=== PATIENT | male | born 1945 | race Caucasian/White ===

== ENCOUNTER 2018-09-13 17:26 | Inpatient (IN) | payer MEDICAID ==
[2018-09-13 17:52] LABS: ADD MAN DIFF? NO
[2018-09-13 17:55] LABS: BASOPHILS % 0.2 % (0.0-2.0); EOSINOPHILS # 0.1 10^3/ul (0.0-0.5); EOSINOPHILS % 0.6 % (0.0-7.0); HEMATOCRIT 45.6 % (42.0-52.0); HEMOGLOBIN 15.3 g/dl (14.0-18.0); LYMPHOCYTES # 1.2 10^3/ul (0.8-2.9); LYMPHOCYTES % 13.3 % (15.0-51.0); MEAN CORPUSCULAR HEMOGLOBIN 30.1 pg (29.0-33.0); MEAN CORPUSCULAR HGB CONC 33.6 g/dl (32.0-37.0); MEAN CORPUSCULAR VOLUME 89.6 fl (82.0-101.0); MEAN PLATELET VOLUME 9.3 fl (7.4-10.4); MONOCYTE # 0.5 10^3/ul (0.3-0.9); MONOCYTES % 5.8 % (0.0-11.0); NEUTROPHIL # 7.1 10^3/ul (1.6-7.5); NEUTROPHILS % 79.5 % (39.0-77.0); PLATELET COUNT 263 10^3/UL (140-415); RED BLOOD COUNT 5.09 10^6/ul (4.70-6.10); RED CELL DISTRIBUTION WIDTH 11.9 % (11.5-14.5)
[2018-09-13 18:14] LABS: ANION GAP 11 (5-13); BLOOD UREA NITROGEN 27 mg/dl (7-20); CALCIUM 9.5 mg/dl (8.4-10.2); CARBON DIOXIDE 26 mmol/L (21-31); CHLORIDE 98 mmol/L (97-110); CREATININE 1.44 mg/dl (0.61-1.24); GLUCOSE 149 mg/dl (70-220); POTASSIUM 4.2 mmol/L (3.5-5.1); SODIUM 135 mmol/L (135-144); URIC ACID 8.9 mg/dl (3.1-7.9)
[2018-09-13] MEDS: HYDROmorphONE 0.5 MG/0.5 ML SYG IV (18:38)
[2018-09-13 19:07] LABS: ERYTHROCYTE SEDIMENTATION RATE 36 mm/Hr (0-20)
[2018-09-13] MEDS ORDERED: DOCUSATE SODIUM 100 MG CAP PO (21:00)
[2018-09-13] MEDS ORDERED: ONDANSETRON 4 MG INJ IV (21:00)
[2018-09-13] MEDS ORDERED: NACL 0.9% 3 ML SYG IV (21:00)
[2018-09-13] MEDS ORDERED: ACETAMINOPHEN 325 MG TAB PO (21:00)
[2018-09-13] MEDS ORDERED: BISACODYL (EC) 5 MG TAB PO (21:00)
[2018-09-13] MEDS: predniSONE 20 MG TAB PO (21:05)
[2018-09-13] MEDS ORDERED: METOPROLOL (XL) 25 MG TAB PO (23:00)
[2018-09-14] MEDS: ATORVASTATIN 80 MG TAB PO ×2 (00:26→21:20)
[2018-09-14 05:30] LABS: ADD MAN DIFF? NO
[2018-09-14 05:50] LABS: WHITE BLOOD COUNT 7.9 10^3/ul (4.8-10.8)
[2018-09-14 05:50] LABS: ABNORMAL IP MESSAGE 1; HEMATOCRIT 44.3 % (42.0-52.0); HEMOGLOBIN 14.8 g/dl (14.0-18.0); LYMPHOCYTES # 0.5 10^3/ul (0.8-2.9); LYMPHOCYTES % 6.3 % (15.0-51.0); MEAN CORPUSCULAR HEMOGLOBIN 30.3 pg (29.0-33.0); MEAN CORPUSCULAR HGB CONC 33.4 g/dl (32.0-37.0); MEAN CORPUSCULAR VOLUME 90.8 fl (82.0-101.0); MEAN PLATELET VOLUME 9.3 fl (7.4-10.4); MONOCYTE # 0.2 10^3/ul (0.3-0.9); NEUTROPHIL # 7.2 10^3/ul (1.6-7.5); NEUTROPHILS % 91.2 % (39.0-77.0); PLATELET COUNT 242 10^3/UL (140-415); POSITIVE DIFF @See below; RED BLOOD COUNT 4.88 10^6/ul (4.70-6.10); RED CELL DISTRIBUTION WIDTH 12.1 % (11.5-14.5)
[2018-09-14] MEDS: PANTOPRAZOLE (EC) 40 MG TAB PO (06:00)
[2018-09-14 06:18] LABS: ALANINE AMINOTRANSFERASE 15 IU/L (13-69); ALBUMIN 3.6 g/dl (3.3-4.9); ALBUMIN/GLOBULIN RATIO 1.33; ALKALINE PHOSPHATASE 78 IU/L (42-121); ANION GAP 10 (5-13); ASPARTATE AMINO TRANSFERASE 21 IU/L (15-46); BILIRUBIN,INDIRECT 1.4 mg/dl (0-1.1); BILIRUBIN,TOTAL 1.4 mg/dl (0.2-1.3); BLOOD UREA NITROGEN 30 mg/dl (7-20); CALCIUM 9.1 mg/dl (8.4-10.2); CARBON DIOXIDE 23 mmol/L (21-31); CHLORIDE 102 mmol/L (97-110); CHOL/HDL RATIO 3.8 RATIO; CHOLESTEROL 124 mg/dl (100-200); CREATININE 1.24 mg/dl (0.61-1.24); GLUCOSE 203 mg/dl (70-220); HDL CHOLESTEROL 32 mg/dl (31-75); LDL CHOLESTEROL,CALCULATED 75 mg/dl; MAGNESIUM 2.1 mg/dl (1.7-2.5); POTASSIUM 4.1 mmol/L (3.5-5.1); SODIUM 135 mmol/L (135-144); TOTAL PROTEIN 6.3 g/dl (6.1-8.1); TRIGLYCERIDES 87 mg/dl (0-149)
[2018-09-14 07:07] LABS: HEMOGLOBIN A1C 5.7 % (0-5.9)
[2018-09-14 08:17] LABS: THYROID STIMULATING HORMONE 0.792 MIU/L (0.465-4.680)
[2018-09-14 08:47] LABS: INR 1.38; PARTIAL THROMBOPLASTIN TIME 36.9 Sec (23.0-35.0); PROTIME 17.1 Sec (11.9-14.9); PT RATIO 1.3
[2018-09-14] MEDS: predniSONE 20 MG TAB PO (09:10)
[2018-09-14] MEDS: ISOSORBIDE DINITRATE 10 MG TAB PO ×3 (09:12→21:21)
[2018-09-14] MEDS ORDERED: PE/SHARK OIL/MO/PETROL 30 GM OINT PR (17:00)
[2018-09-14] MEDS: BUPIVACAINE 0.5%/EPI (SDV) 30 ML INJ INJ (21:19)
[2018-09-14] MEDS: BETAMET NA PHOS/AC(6 MG/ML) 5ML INJ INJ (21:20)
[2018-09-15 05:24] LABS: ADD MAN DIFF? NO
[2018-09-15 05:32] LABS: BASOPHILS % 0.1 % (0.0-2.0); HEMATOCRIT 40.8 % (42.0-52.0); HEMOGLOBIN 13.8 g/dl (14.0-18.0); LYMPHOCYTES # 0.6 10^3/ul (0.8-2.9); LYMPHOCYTES % 5.1 % (15.0-51.0); MEAN CORPUSCULAR HEMOGLOBIN 30.4 pg (29.0-33.0); MEAN CORPUSCULAR HGB CONC 33.8 g/dl (32.0-37.0); MEAN CORPUSCULAR VOLUME 89.9 fl (82.0-101.0); MEAN PLATELET VOLUME 9.3 fl (7.4-10.4); MONOCYTE # 0.4 10^3/ul (0.3-0.9); MONOCYTES % 3.5 % (0.0-11.0); NEUTROPHIL # 10.7 10^3/ul (1.6-7.5); NEUTROPHILS % 90.7 % (39.0-77.0); PLATELET COUNT 262 10^3/UL (140-415); RED BLOOD COUNT 4.54 10^6/ul (4.70-6.10); RED CELL DISTRIBUTION WIDTH 11.9 % (11.5-14.5)
[2018-09-15 05:32] LABS: WHITE BLOOD COUNT 11.8 10^3/ul (4.8-10.8)
[2018-09-15 05:56] LABS: ANION GAP 8 (5-13); BLOOD UREA NITROGEN 37 mg/dl (7-20); CALCIUM 9.4 mg/dl (8.4-10.2); CARBON DIOXIDE 28 mmol/L (21-31); CHLORIDE 101 mmol/L (97-110); CREATININE 1.19 mg/dl (0.61-1.24); GLUCOSE 168 mg/dl (70-220); POTASSIUM 4.1 mmol/L (3.5-5.1); SODIUM 137 mmol/L (135-144)
[2018-09-15] MEDS: PANTOPRAZOLE (EC) 40 MG TAB PO (06:51)
[2018-09-15] MEDS: HYDROmorphONE 0.5 MG/0.5 ML SYG IV ×2 (06:57→20:40)
[2018-09-15 07:35] LABS: ERYTHROCYTE SEDIMENTATION RATE 44 mm/Hr (0-20)
[2018-09-15] MEDS: ISOSORBIDE DINITRATE 10 MG TAB PO ×3 (09:02→21:51)
[2018-09-15] MEDS: predniSONE 20 MG TAB PO (09:03)
[2018-09-15] MEDS: ATORVASTATIN 80 MG TAB PO (21:53)
[2018-09-15] MEDS: CARBOXYMETHYLCELLULOSE 0.5% 0.4 ML OPH BOTH EYES (23:11)
[2018-09-16] MEDS: PANTOPRAZOLE (EC) 40 MG TAB PO (06:43)
[2018-09-16] MEDS: predniSONE 20 MG TAB PO (08:49)
[2018-09-16] MEDS: CLOPIDOGREL 75 MG TAB GTB (08:49)
[2018-09-16] MEDS: ISOSORBIDE DINITRATE 10 MG TAB PO ×2 (08:50→12:56)
[2018-09-16] MEDS ORDERED: predniSONE 20 MG TAB PO (09:00)
[2018-09-16] MEDS: CARBOXYMETHYLCELLULOSE 0.5% 0.4 ML OPH BOTH EYES (12:22)
[2018-09-16] MEDS ORDERED: RIVAROXABAN 15 MG TABLET PO (17:55)
== END 2018-09-16 16:50 | disposition home health service (06) | DRG 554 ==
LOC: E/R 17:26 → MS1 20:07
PROVIDERS: Family Medicine
DX: M13.862 Other specified arthritis, left knee (principal); I13.0 Hypertensive heart and chronic kidney disease with heart failure and stage 1 through stage 4 chronic kidney disease, or unspecified chronic kidney disease; N17.9 Acute kidney failure, unspecified; I48.91 Unspecified atrial fibrillation; E78.5 Hyperlipidemia, unspecified; I10 Essential (primary) hypertension; I25.10 Atherosclerotic heart disease of native coronary artery without angina pectoris; M10.9 Gout, unspecified; I50.9 Heart failure, unspecified; N18.9 Chronic kidney disease, unspecified; Z79.01 Long term (current) use of anticoagulants
CPT/HCPCS: 36415; 73562; 73630; 73630-LT; 80048; 80053; 80061; 82962; 83036; 83605; 83735; 84443; 84560; 85025; 85610; 85651; 85730; 93005; 96374; 97116; 97162; 97530; 99285-25

== ENCOUNTER 2018-10-01 17:34 | Inpatient (IN) | payer OTHER, MEDICAID ==
[2018-10-01] MEDS: HYDROmorphONE 1 MG/ML SYG IV (18:24)
[2018-10-01] MEDS: ONDANSETRON 4 MG INJ IV (18:24)
[2018-10-01] MEDS: SOD CHLORIDE 0.9% 1,000 ML IV ×2 (18:24→22:45)
[2018-10-01 18:29] LABS: ADD MAN DIFF? NO
[2018-10-01 18:30] LABS: BASOPHILS % 0.1 % (0.0-2.0); EOSINOPHILS % 0.1 % (0.0-7.0); HEMATOCRIT 42.6 % (42.0-52.0); HEMOGLOBIN 14.1 g/dl (14.0-18.0); LYMPHOCYTES # 1.1 10^3/ul (0.8-2.9); LYMPHOCYTES % 11.4 % (15.0-51.0); MEAN CORPUSCULAR HEMOGLOBIN 30.4 pg (29.0-33.0); MEAN CORPUSCULAR HGB CONC 33.1 g/dl (32.0-37.0); MEAN CORPUSCULAR VOLUME 91.8 fl (82.0-101.0); MONOCYTE # 0.5 10^3/ul (0.3-0.9); MONOCYTES % 5.3 % (0.0-11.0); NEUTROPHIL # 8.1 10^3/ul (1.6-7.5); NEUTROPHILS % 82.1 % (39.0-77.0); PLATELET COUNT 179 10^3/UL (140-415); RED BLOOD COUNT 4.64 10^6/ul (4.70-6.10); RED CELL DISTRIBUTION WIDTH 12.6 % (11.5-14.5)
[2018-10-01 18:30] LABS: WHITE BLOOD COUNT 9.9 10^3/ul (4.8-10.8)
[2018-10-01 18:48] LABS: ALANINE AMINOTRANSFERASE 27 IU/L (13-69); ALBUMIN 3.7 g/dl (3.3-4.9); ALBUMIN/GLOBULIN RATIO 1.32; ALKALINE PHOSPHATASE 66 IU/L (42-121); ANION GAP 9 (5-13); ASPARTATE AMINO TRANSFERASE 24 IU/L (15-46); BILIRUBIN,INDIRECT 0.9 mg/dl (0-1.1); BILIRUBIN,TOTAL 0.9 mg/dl (0.2-1.3); BLOOD UREA NITROGEN 32 mg/dl (7-20); CALCIUM 9.3 mg/dl (8.4-10.2); CARBON DIOXIDE 26 mmol/L (21-31); CHLORIDE 102 mmol/L (97-110); GLUCOSE 126 mg/dl (70-220); LIPASE 95 U/L (23-300); POTASSIUM 4.2 mmol/L (3.5-5.1); SODIUM 137 mmol/L (135-144); TOTAL PROTEIN 6.5 g/dl (6.1-8.1)
[2018-10-01 18:51] LABS: INR 1.39; PARTIAL THROMBOPLASTIN TIME 26.1 Sec (23.0-35.0); PROTIME 17.2 Sec (11.9-14.9); PT RATIO 1.3
[2018-10-01 18:58] LABS: TROPONIN-I 0.021 ng/ml (0.000-0.120)
[2018-10-01] MEDS: IODIXANOL LOCM 100 ML BTL (19:38)
[2018-10-01] MEDS: SOD CHLORIDE 0.9% 100 ML (19:38)
[2018-10-01] MEDS ORDERED: ACETAMINOPHEN 325 MG TAB PO (20:00)
[2018-10-01] MEDS ORDERED: NACL 0.9% 3 ML SYG IV (20:00)
[2018-10-01] MEDS ORDERED: ONDANSETRON 4 MG INJ IV (20:00)
[2018-10-01 20:10] LABS: ADD UMIC YES; UR ASCORBIC ACID NEGATIVE (NEGATIVE); UR BILIRUBIN (Dip) NEGATIVE (NEGATIVE); UR BLOOD (Dip) 2+ mg/dL (NEGATIVE); UR CLARITY CLEAR (CLEAR); UR COLOR STRAW (YELLOW); UR GLUCOSE (Dip) NEGATIVE (NEGATIVE); UR KETONES (Dip) NEGATIVE (NEGATIVE); UR LEUKOCYTE ESTERASE (Dip) NEGATIVE Leu/ul (NEGATIVE); UR NITRITE (Dip) NEGATIVE (NEGATIVE); UR RBC 92 /HPF (0-5); UR SPECIFIC GRAVITY (Dip) 1.011 (1.003-1.030); UR TOTAL PROTEIN (Dip) NEGATIVE (NEGATIVE); UR UROBILINOGEN (Dip) NEGATIVE (NEGATIVE); UR WBC 2 /HPF (0-5)
[2018-10-02] MEDS: HYDROmorphONE 0.5 MG/0.5 ML SYG IV ×2 (00:58→17:26)
[2018-10-02] MEDS: PIPER-TAZO 3.375 GM IV (PMX) 100 ML IVPB ×3 (06:16→17:05)
[2018-10-02] MEDS: PANTOPRAZOLE 40 MG INJ IV (06:58)
[2018-10-02 07:10] LABS: ADD MAN DIFF? NO
[2018-10-02 07:21] LABS: WHITE BLOOD COUNT 9.7 10^3/ul (4.8-10.8)
[2018-10-02 07:21] LABS: BASOPHILS % 0.2 % (0.0-2.0); EOSINOPHILS % 0.3 % (0.0-7.0); HEMOGLOBIN 13.8 g/dl (14.0-18.0); LYMPHOCYTES # 0.9 10^3/ul (0.8-2.9); LYMPHOCYTES % 9.3 % (15.0-51.0); MEAN CORPUSCULAR HEMOGLOBIN 30.7 pg (29.0-33.0); MEAN CORPUSCULAR HGB CONC 32.9 g/dl (32.0-37.0); MEAN CORPUSCULAR VOLUME 93.5 fl (82.0-101.0); MEAN PLATELET VOLUME 9.1 fl (7.4-10.4); MONOCYTE # 0.5 10^3/ul (0.3-0.9); MONOCYTES % 4.8 % (0.0-11.0); NEUTROPHIL # 8.2 10^3/ul (1.6-7.5); NEUTROPHILS % 84.7 % (39.0-77.0); PLATELET COUNT 160 10^3/UL (140-415); RED BLOOD COUNT 4.49 10^6/ul (4.70-6.10); RED CELL DISTRIBUTION WIDTH 12.9 % (11.5-14.5)
[2018-10-02 07:51] LABS: ANION GAP 3 (5-13); BLOOD UREA NITROGEN 28 mg/dl (7-20); CALCIUM 8.6 mg/dl (8.4-10.2); CARBON DIOXIDE 30 mmol/L (21-31); CHLORIDE 104 mmol/L (97-110); CREATININE 1.06 mg/dl (0.61-1.24); GLUCOSE 123 mg/dl (70-220); MAGNESIUM 2.1 mg/dl (1.7-2.5); POTASSIUM 3.9 mmol/L (3.5-5.1); SODIUM 137 mmol/L (135-144)
[2018-10-02] MEDS: SOD CHLORIDE 0.9% 1,000 ML IV ×2 (10:06→16:48)
[2018-10-02] MEDS ORDERED: ETOMIDATE 20 MG INJ (12:56)
[2018-10-02] MEDS ORDERED: FENTAnyl 50 MCG/ML VIAL ×2 (12:56→14:09)
[2018-10-02 13:08] LABS: IMMEDIATE SPIN CROSSMATCH 1 2
[2018-10-02] MEDS ORDERED: SUCCINYLCHOLINE CHLORIDE 100 MG/5 ML SYG IV (13:30)
[2018-10-02] MEDS ORDERED: ROCURONIUM 50 MG INJ (13:30)
[2018-10-02] MEDS ORDERED: SUGAMMADEX SODIUM 200 MG/2 ML VIAL IV (13:30)
[2018-10-02] MEDS ORDERED: PROPOFOL 20 ML (13:30)
[2018-10-02] MEDS ORDERED: LIDOCAINE 100 MG SYRINGE (13:30)
[2018-10-02] MEDS ORDERED: HYDROmorphONE 1 MG/5 ML IV SYRINGE IV ×2 (14:28→15:00)
[2018-10-02] MEDS ORDERED: FENTAnyl 50 MCG/ML VIAL IV ×2 (15:00)
[2018-10-02] MEDS: ONDANSETRON 4 MG INJ IV (15:24)
[2018-10-02] MEDS: HYDROmorphONE 1 MG/5 ML IV SYRINGE IV ×2 (15:25→15:55)
[2018-10-02] MEDS: FENTAnyl 50 MCG/ML VIAL IV (16:01)
[2018-10-02] MEDS: CLOPIDOGREL 75 MG TAB PO (17:05)
[2018-10-02 20:02] LABS: ADD UMIC YES; UR ASCORBIC ACID NEGATIVE (NEGATIVE); UR BILIRUBIN (Dip) NEGATIVE (NEGATIVE); UR BLOOD (Dip) 3+ mg/dL (NEGATIVE); UR CLARITY CLOUDY (CLEAR); UR COLOR AMBER (YELLOW); UR GLUCOSE (Dip) NEGATIVE (NEGATIVE); UR KETONES (Dip) NEGATIVE (NEGATIVE); UR LEUKOCYTE ESTERASE (Dip) NEGATIVE Leu/ul (NEGATIVE); UR NITRITE (Dip) NEGATIVE (NEGATIVE); UR RBC > 182 /HPF (0-5); UR SPECIFIC GRAVITY (Dip) 1.026 (1.003-1.030); UR TOTAL PROTEIN (Dip) 2+ mg/dl (NEGATIVE); UR UROBILINOGEN (Dip) NEGATIVE (NEGATIVE); UR WBC > 182 /HPF (0-5)
[2018-10-03] MEDS: PIPER-TAZO 3.375 GM IV (PMX) 100 ML IVPB ×4 (05:41→18:58)
[2018-10-03] MEDS: PANTOPRAZOLE 40 MG INJ IV (05:42)
[2018-10-03] MEDS: CLOPIDOGREL 75 MG TAB PO (08:03)
[2018-10-03] MEDS: HYDROmorphONE 0.5 MG/0.5 ML SYG IV (08:08)
[2018-10-03] MEDS: SOD CHLORIDE 0.9% 1,000 ML IV (10:57)
[2018-10-03 12:20] LABS: ADD MAN DIFF? NO
[2018-10-03 12:23] LABS: BASOPHILS % 0.4 % (0.0-2.0); EOSINOPHILS # 0.1 10^3/ul (0.0-0.5); HEMATOCRIT 31.5 % (42.0-52.0); HEMOGLOBIN 10.2 g/dl (14.0-18.0); LYMPHOCYTES # 0.7 10^3/ul (0.8-2.9); LYMPHOCYTES % 8.7 % (15.0-51.0); MEAN CORPUSCULAR HEMOGLOBIN 31.2 pg (29.0-33.0); MEAN CORPUSCULAR HGB CONC 32.4 g/dl (32.0-37.0); MEAN CORPUSCULAR VOLUME 96.3 fl (82.0-101.0); MEAN PLATELET VOLUME 9.3 fl (7.4-10.4); MONOCYTE # 0.4 10^3/ul (0.3-0.9); MONOCYTES % 4.5 % (0.0-11.0); NEUTROPHIL # 6.8 10^3/ul (1.6-7.5); NEUTROPHILS % 84.9 % (39.0-77.0); PLATELET COUNT 144 10^3/UL (140-415); RED BLOOD COUNT 3.27 10^6/ul (4.70-6.10); RED CELL DISTRIBUTION WIDTH 12.9 % (11.5-14.5)
[2018-10-03 12:42] LABS: ANION GAP 2 (5-13); BLOOD UREA NITROGEN 32 mg/dl (7-20); CALCIUM 7.9 mg/dl (8.4-10.2); CARBON DIOXIDE 28 mmol/L (21-31); CHLORIDE 106 mmol/L (97-110); CREATININE 1.57 mg/dl (0.61-1.24); GLUCOSE 139 mg/dl (70-220); MAGNESIUM 1.8 mg/dl (1.7-2.5); PHOSPHORUS 5.2 mg/dl (2.5-4.9); POTASSIUM 3.9 mmol/L (3.5-5.1); SODIUM 136 mmol/L (135-144)
[2018-10-04] MEDS: PIPER-TAZO 3.375 GM IV (PMX) 100 ML IVPB ×5 (00:11→23:50)
[2018-10-04] MEDS: HYDROmorphONE 0.5 MG/0.5 ML SYG IV ×3 (00:13→23:50)
[2018-10-04] MEDS: PANTOPRAZOLE 40 MG INJ IV (05:15)
[2018-10-04] MEDS: SOD CHLORIDE 0.9% 1,000 ML IV ×2 (05:15→17:47)
[2018-10-04 06:43] LABS: ADD MAN DIFF? NO
[2018-10-04 06:46] LABS: ABNORMAL IP MESSAGE 1; EOSINOPHILS % 0.7 % (0.0-7.0); HEMATOCRIT 27.5 % (42.0-52.0); LYMPHOCYTES # 0.4 10^3/ul (0.8-2.9); LYMPHOCYTES % 7.1 % (15.0-51.0); MEAN CORPUSCULAR HGB CONC 32.7 g/dl (32.0-37.0); MEAN CORPUSCULAR VOLUME 94.8 fl (82.0-101.0); MEAN PLATELET VOLUME 9.2 fl (7.4-10.4); MONOCYTE # 0.3 10^3/ul (0.3-0.9); MONOCYTES % 4.4 % (0.0-11.0); NEUTROPHIL # 5.1 10^3/ul (1.6-7.5); PLATELET COUNT 113 10^3/UL (140-415); POSITIVE DIFF @See below
[2018-10-04 06:46] LABS: WHITE BLOOD COUNT 5.9 10^3/ul (4.8-10.8)
[2018-10-04 07:14] LABS: ANION GAP 0 (5-13); BLOOD UREA NITROGEN 27 mg/dl (7-20); CALCIUM 8.2 mg/dl (8.4-10.2); CARBON DIOXIDE 29 mmol/L (21-31); CHLORIDE 106 mmol/L (97-110); CREATININE 1.41 mg/dl (0.61-1.24); GLUCOSE 135 mg/dl (70-220); POTASSIUM 3.7 mmol/L (3.5-5.1); SODIUM 135 mmol/L (135-144)
[2018-10-04 07:18] LABS: PHOSPHORUS 3.2 mg/dl (2.5-4.9)
[2018-10-04] MEDS: CLOPIDOGREL 75 MG TAB PO (08:47)
[2018-10-04] MEDS: ONDANSETRON 4 MG INJ IV (21:04)
[2018-10-05] MEDS: ONDANSETRON 4 MG INJ IV (03:16)
[2018-10-05] MEDS: PANTOPRAZOLE (EC) 40 MG TAB PO (06:36)
[2018-10-05] MEDS: PIPER-TAZO 3.375 GM IV (PMX) 100 ML IVPB ×3 (06:36→17:57)
[2018-10-05] MEDS: CLOPIDOGREL 75 MG TAB PO (08:55)
[2018-10-05] MEDS ORDERED: BISACODYL (EC) 5 MG TAB PO (10:00)
[2018-10-05 10:32] LABS: ADD MAN DIFF? NO
[2018-10-05 10:34] LABS: ABNORMAL IP MESSAGE 1; BASOPHILS % 0.1 % (0.0-2.0); EOSINOPHILS % 0.4 % (0.0-7.0); HEMATOCRIT 28.3 % (42.0-52.0); HEMOGLOBIN 9.1 g/dl (14.0-18.0); LYMPHOCYTES # 0.4 10^3/ul (0.8-2.9); LYMPHOCYTES % 5.8 % (15.0-51.0); MEAN CORPUSCULAR HEMOGLOBIN 30.8 pg (29.0-33.0); MEAN CORPUSCULAR HGB CONC 32.2 g/dl (32.0-37.0); MEAN CORPUSCULAR VOLUME 95.9 fl (82.0-101.0); MEAN PLATELET VOLUME 9.2 fl (7.4-10.4); MONOCYTE # 0.3 10^3/ul (0.3-0.9); MONOCYTES % 4.4 % (0.0-11.0); NEUTROPHIL # 6.2 10^3/ul (1.6-7.5); NEUTROPHILS % 88.4 % (39.0-77.0); PLATELET COUNT 127 10^3/UL (140-415); POSITIVE DIFF @See below; RED BLOOD COUNT 2.95 10^6/ul (4.70-6.10)
[2018-10-05] MEDS: METOCLOPRAMIDE 10 MG INJ IV ×2 (13:19→17:57)
[2018-10-05] MEDS: HYDROmorphONE 0.5 MG/0.5 ML SYG IV ×2 (13:50→21:19)
[2018-10-05] MEDS: POLYETHYLENE GLYCOL 17 GM PACKET PO (14:36)
[2018-10-05 16:28] LABS: HEMATOCRIT 28.7 % (42.0-52.0); HEMOGLOBIN 9.3 g/dl (14.0-18.0)
[2018-10-06] MEDS: PIPER-TAZO 3.375 GM IV (PMX) 100 ML IVPB ×4 (00:32→17:45)
[2018-10-06] MEDS: METOCLOPRAMIDE 10 MG INJ IV ×5 (00:32→23:30)
[2018-10-06] MEDS: PANTOPRAZOLE (EC) 40 MG TAB PO (05:54)
[2018-10-06] MEDS: HYDROmorphONE 0.5 MG/0.5 ML SYG IV ×2 (05:56→10:16)
[2018-10-06 08:21] LABS: ADD MAN DIFF? NO
[2018-10-06 08:29] LABS: WHITE BLOOD COUNT 4.5 10^3/ul (4.8-10.8)
[2018-10-06 08:29] LABS: ABNORMAL IP MESSAGE 1; BASOPHILS % 0.4 % (0.0-2.0); EOSINOPHILS # 0.1 10^3/ul (0.0-0.5); EOSINOPHILS % 1.5 % (0.0-7.0); HEMATOCRIT 26.8 % (42.0-52.0); HEMOGLOBIN 8.9 g/dl (14.0-18.0); LYMPHOCYTES # 0.4 10^3/ul (0.8-2.9); LYMPHOCYTES % 9.7 % (15.0-51.0); MEAN CORPUSCULAR HEMOGLOBIN 31.4 pg (29.0-33.0); MEAN CORPUSCULAR HGB CONC 33.2 g/dl (32.0-37.0); MEAN CORPUSCULAR VOLUME 94.7 fl (82.0-101.0); MEAN PLATELET VOLUME 9.4 fl (7.4-10.4); MONOCYTE # 0.3 10^3/ul (0.3-0.9); MONOCYTES % 5.5 % (0.0-11.0); NEUTROPHIL # 3.8 10^3/ul (1.6-7.5); NEUTROPHILS % 82.7 % (39.0-77.0); PLATELET COUNT 134 10^3/UL (140-415); POSITIVE DIFF @See below; RED BLOOD COUNT 2.83 10^6/ul (4.70-6.10); RED CELL DISTRIBUTION WIDTH 13.3 % (11.5-14.5)
[2018-10-06 09:02] LABS: ANION GAP 4 (5-13); BLOOD UREA NITROGEN 32 mg/dl (7-20); CALCIUM 8.4 mg/dl (8.4-10.2); CARBON DIOXIDE 27 mmol/L (21-31); CHLORIDE 105 mmol/L (97-110); GLUCOSE 125 mg/dl (70-220); MAGNESIUM 2.1 mg/dl (1.7-2.5); POTASSIUM 3.4 mmol/L (3.5-5.1); SODIUM 136 mmol/L (135-144)
[2018-10-06 09:02] LABS: PHOSPHORUS 2.9 mg/dl (2.5-4.9)
[2018-10-06] MEDS: POLYETHYLENE GLYCOL 17 GM PACKET PO (10:11)
[2018-10-06] MEDS: CLOPIDOGREL 75 MG TAB PO (10:11)
[2018-10-06] MEDS: RIVAROXABAN 15 MG TABLET PO (16:21)
[2018-10-06] MEDS: NA PHOSPHATE/BIPHOS 133 ML ENEMA PR ×2 (16:23→20:51)
[2018-10-07] MEDS: PIPER-TAZO 3.375 GM IV (PMX) 100 ML IVPB ×3 (02:19→18:24)
[2018-10-07] MEDS: PANTOPRAZOLE (EC) 40 MG TAB PO (06:26)
[2018-10-07] MEDS: METOCLOPRAMIDE 10 MG INJ IV ×3 (06:26→18:24)
[2018-10-07] MEDS: HYDROmorphONE 0.5 MG/0.5 ML SYG IV (08:05)
[2018-10-07] MEDS: CLOPIDOGREL 75 MG TAB PO (08:17)
[2018-10-07] MEDS: POLYETHYLENE GLYCOL 17 GM PACKET PO (08:17)
[2018-10-07] MEDS: RIVAROXABAN 15 MG TABLET PO (08:18)
[2018-10-07] MEDS ORDERED: NA PHOSPHATE/BIPHOS 133 ML ENEMA PR (11:30)
[2018-10-07] MEDS: SOD CHLORIDE 0.9% 1,000 ML IV ×2 (14:31→22:00)
[2018-10-07] MEDS ORDERED: HYDROCODONE/APAP (7.5/325) TAB PO (15:30)
[2018-10-07] MEDS: HYDROmorphONE 2 MG TAB PO (18:25)
[2018-10-08] MEDS: METOCLOPRAMIDE 10 MG INJ IV ×4 (00:30→17:47)
[2018-10-08] MEDS: PIPER-TAZO 3.375 GM IV (PMX) 100 ML IVPB ×3 (01:59→17:47)
[2018-10-08] MEDS: HYDROmorphONE 2 MG TAB PO ×3 (02:26→18:24)
[2018-10-08] MEDS: PANTOPRAZOLE (EC) 40 MG TAB PO (05:44)
[2018-10-08] MEDS: POLYETHYLENE GLYCOL 17 GM PACKET PO (08:57)
[2018-10-08] MEDS: SOD CHLORIDE 0.9% 1,000 ML IV ×2 (08:57→17:27)
[2018-10-08] MEDS: RIVAROXABAN 15 MG TABLET PO (08:57)
[2018-10-08] MEDS: CLOPIDOGREL 75 MG TAB PO (08:57)
[2018-10-08 09:16] LABS: ADD MAN DIFF? NO
[2018-10-08 09:29] LABS: WHITE BLOOD COUNT 4.7 10^3/ul (4.8-10.8)
[2018-10-08 09:29] LABS: ABNORMAL IP MESSAGE 1; BASOPHILS % 0.2 % (0.0-2.0); EOSINOPHILS # 0.1 10^3/ul (0.0-0.5); EOSINOPHILS % 1.7 % (0.0-7.0); HEMATOCRIT 28.7 % (42.0-52.0); HEMOGLOBIN 9.2 g/dl (14.0-18.0); LYMPHOCYTES # 0.5 10^3/ul (0.8-2.9); LYMPHOCYTES % 10.9 % (15.0-51.0); MEAN CORPUSCULAR HEMOGLOBIN 30.9 pg (29.0-33.0); MEAN CORPUSCULAR HGB CONC 32.1 g/dl (32.0-37.0); MEAN CORPUSCULAR VOLUME 96.3 fl (82.0-101.0); MEAN PLATELET VOLUME 9.3 fl (7.4-10.4); MONOCYTE # 0.4 10^3/ul (0.3-0.9); MONOCYTES % 7.9 % (0.0-11.0); NEUTROPHIL # 3.7 10^3/ul (1.6-7.5); NEUTROPHILS % 78.2 % (39.0-77.0); PLATELET COUNT 147 10^3/UL (140-415); POSITIVE DIFF @See below; RED BLOOD COUNT 2.98 10^6/ul (4.70-6.10); RED CELL DISTRIBUTION WIDTH 13.6 % (11.5-14.5)
[2018-10-08 16:47] LABS: ANION GAP 6 (5-13); BLOOD UREA NITROGEN 22 mg/dl (7-20); CALCIUM 8.1 mg/dl (8.4-10.2); CARBON DIOXIDE 24 mmol/L (21-31); CHLORIDE 106 mmol/L (97-110); CREATININE 1.69 mg/dl (0.61-1.24); GLUCOSE 152 mg/dl (70-220); POTASSIUM 3.7 mmol/L (3.5-5.1); SODIUM 136 mmol/L (135-144)
== END 2018-10-08 21:28 | DRG 351 ==
LOC: E/R 17:34 → ICU 10-02 14:00 → TEL 10-02 16:30
PROC: 0YU50JZ Supplement Right Inguinal Region with Synthetic Substitute, Open Approach (ICD-10-PCS; principal; 2018-10-02 10:00)
PROC: 30233R1 Transfusion of Nonautologous Platelets into Peripheral Vein, Percutaneous Approach (ICD-10-PCS; 2018-10-02 10:00)
DX: K40.31 Unilateral inguinal hernia, with obstruction, without gangrene, recurrent (principal); I13.0 Hypertensive heart and chronic kidney disease with heart failure and stage 1 through stage 4 chronic kidney disease, or unspecified chronic kidney disease; N17.9 Acute kidney failure, unspecified; I11.0 Hypertensive heart disease with heart failure; I48.91 Unspecified atrial fibrillation; I50.9 Heart failure, unspecified; N18.9 Chronic kidney disease, unspecified; R10.32 Left lower quadrant pain; E78.5 Hyperlipidemia, unspecified; I25.10 Atherosclerotic heart disease of native coronary artery without angina pectoris; M1A.9XX0 Chronic gout, unspecified, without tophus (tophi); K40.90 Unilateral inguinal hernia, without obstruction or gangrene, not specified as recurrent; Z79.02 Long term (current) use of antithrombotics/antiplatelets; Z95.5 Presence of coronary angioplasty implant and graft
CPT/HCPCS: 36415; 36430; 71045; 74018; 74177; 80048; 80053; 81001; 83690; 83735; 84100; 84484; 85014; 85018; 85025; 85610; 85730; 86850; 86900; 86901; 86920; 87086; 93005; 93306; 96374; 96375; 97116; 97162; 97165; 97530; 97535; 99285-25

== ENCOUNTER 2018-10-16 23:10 | Inpatient (IN) | payer OTHER, MEDICAID ==
[2018-10-16] MEDS: SOD CHLORIDE 0.9% 500 ML IV (23:59)
[2018-10-16] MEDS: ONDANSETRON 4 MG INJ IV (23:59)
[2018-10-17] MEDS: HYDROmorphONE 0.5 MG/0.5 ML SYG IV
[2018-10-17 00:23] LABS: ADD MAN DIFF? NO
[2018-10-17 00:26] LABS: BASOPHILS % 0.7 % (0.0-2.0); EOSINOPHILS # 0.1 10^3/ul (0.0-0.5); EOSINOPHILS % 1.4 % (0.0-7.0); HEMATOCRIT 29.6 % (42.0-52.0); HEMOGLOBIN 9.7 g/dl (14.0-18.0); LYMPHOCYTES # 1.1 10^3/ul (0.8-2.9); LYMPHOCYTES % 24.7 % (15.0-51.0); MEAN CORPUSCULAR HEMOGLOBIN 30.7 pg (29.0-33.0); MEAN CORPUSCULAR HGB CONC 32.8 g/dl (32.0-37.0); MEAN CORPUSCULAR VOLUME 93.7 fl (82.0-101.0); MEAN PLATELET VOLUME 9.2 fl (7.4-10.4); MONOCYTE # 0.4 10^3/ul (0.3-0.9); MONOCYTES % 9.7 % (0.0-11.0); NEUTROPHIL # 2.7 10^3/ul (1.6-7.5); NEUTROPHILS % 62.8 % (39.0-77.0); POSITIVE DIFF @See below; RED BLOOD COUNT 3.16 10^6/ul (4.70-6.10)
[2018-10-17 00:26] LABS: WHITE BLOOD COUNT 4.3 10^3/ul (4.8-10.8)
[2018-10-17 00:27] LABS: PLATELET COUNT 330 10^3/UL (140-415)
[2018-10-17 00:33] LABS: ADD UMIC YES; UR ASCORBIC ACID NEGATIVE (NEGATIVE); UR BACTERIA FEW /HPF (NONE SEEN); UR BILIRUBIN (Dip) NEGATIVE (NEGATIVE); UR BLOOD (Dip) 1+ mg/dL (NEGATIVE); UR CLARITY CLOUDY (CLEAR); UR COLOR YELLOW (YELLOW); UR GLUCOSE (Dip) NEGATIVE (NEGATIVE); UR HYALINE CAST FEW /HPF (NONE SEEN); UR KETONES (Dip) NEGATIVE (NEGATIVE); UR LEUKOCYTE ESTERASE (Dip) NEGATIVE Leu/ul (NEGATIVE); UR MUCUS FEW /HPF (NONE SEEN); UR NITRITE (Dip) NEGATIVE (NEGATIVE); UR RBC 8 /HPF (0-5); UR SPECIFIC GRAVITY (Dip) 1.011 (1.003-1.030); UR SQUAMOUS EPITHELIAL CELL FEW /HPF (FEW); UR TOTAL PROTEIN (Dip) 1+ mg/dl (NEGATIVE); UR UROBILINOGEN (Dip) NEGATIVE (NEGATIVE); UR WBC 6 /HPF (0-5)
[2018-10-17 00:45] LABS: ALANINE AMINOTRANSFERASE 27 IU/L (13-69); ALBUMIN 3.1 g/dl (3.3-4.9); ALBUMIN/GLOBULIN RATIO 1.06; ALKALINE PHOSPHATASE 74 IU/L (42-121); ANION GAP 8 (5-13); ASPARTATE AMINO TRANSFERASE 24 IU/L (15-46); BLOOD UREA NITROGEN 19 mg/dl (7-20); CALCIUM 9.1 mg/dl (8.4-10.2); CARBON DIOXIDE 27 mmol/L (21-31); CHLORIDE 100 mmol/L (97-110); CREATININE 2.09 mg/dl (0.61-1.24); GLUCOSE 108 mg/dl (70-220); LIPASE 242 U/L (23-300); SODIUM 135 mmol/L (135-144)
[2018-10-17 02:10] LABS: BAND NEUTROPHILS #M 0.3 10^3/ul (0.0-0.6); BAND NEUTROPHILS % (M) 7 % (0-4); EOSINOPHILS % (M) 3 % (0-7); LYMPHOCYTES #M 0.8 10^3/ul (0.8-2.9); LYMPHOCYTES % (M) 20 % (15-51); MONOCYTE #M 0.3 10^3/ul (0.3-0.9); MONOCYTES % (M) 9 % (0-11); PLATELET ESTIMATE NORMAL; POIKILOCYTOSIS 1+ (0-0); POLYCHROMASIA 2+ (0-0); REACTIVE LYMPHOCYTES #M 0.2 10^3/ul (0.0-0.0); REACTIVE LYMPHOCYTES% (M) 6 % (0-0); SEG NEUT #M 2.4 10^3/ul (1.6-7.5); SEGMENTED NEUTROPHILS (M) % 55 % (39-77); SMUDGE%M 8 % (0-0)
[2018-10-17] MEDS: CEFTRIAXONE 1 GM/50 ML (PMX) 50 ML IVPB (02:51)
[2018-10-17] MEDS ORDERED: ONDANSETRON 4 MG INJ IV (03:30)
[2018-10-17] MEDS: ONDANSETRON 4 MG INJ IV (05:52)
[2018-10-17] MEDS: HYDROmorphONE 1 MG/ML SYG IV ×2 (05:52→13:38)
[2018-10-17] MEDS: SOD CHLORIDE 0.9% 1,000 ML IV ×4 (05:54→23:15)
[2018-10-17] MEDS ORDERED: NACL 0.9% 3 ML SYG IV (06:00)
[2018-10-17] MEDS ORDERED: ACETAMINOPHEN 325 MG TAB PO (06:00)
[2018-10-17] MEDS ORDERED: DOCUSATE SODIUM 100 MG CAP PO (06:00)
[2018-10-17] MEDS ORDERED: BISACODYL (EC) 5 MG TAB PO (06:00)
[2018-10-17 06:40] LABS: INR 1.23; PROTIME 15.6 Sec (11.9-14.9); PT RATIO 1.2
[2018-10-17 06:41] LABS: PARTIAL THROMBOPLASTIN TIME 27.4 Sec (23.0-35.0)
[2018-10-17] MEDS: ATORVASTATIN 80 MG TAB PO (20:58)
[2018-10-17] MEDS: TAMSULOSIN (SR) 0.4 MG CAP PO (20:59)
[2018-10-18 05:34] LABS: ADD MAN DIFF? NO
[2018-10-18 05:57] LABS: BASOPHILS % 0.7 % (0.0-2.0); EOSINOPHILS # 0.1 10^3/ul (0.0-0.5); EOSINOPHILS % 3.3 % (0.0-7.0); HEMATOCRIT 28.3 % (42.0-52.0); LYMPHOCYTES # 0.8 10^3/ul (0.8-2.9); LYMPHOCYTES % 30.5 % (15.0-51.0); MEAN CORPUSCULAR HEMOGLOBIN 30.2 pg (29.0-33.0); MEAN CORPUSCULAR HGB CONC 31.8 g/dl (32.0-37.0); MEAN PLATELET VOLUME 9.1 fl (7.4-10.4); MONOCYTE # 0.4 10^3/ul (0.3-0.9); MONOCYTES % 15.3 % (0.0-11.0); NEUTROPHIL # 1.4 10^3/ul (1.6-7.5); NEUTROPHILS % 49.5 % (39.0-77.0); PLATELET COUNT 268 10^3/UL (140-415); RED BLOOD COUNT 2.98 10^6/ul (4.70-6.10)
[2018-10-18 05:57] LABS: WHITE BLOOD COUNT 2.8 10^3/ul (4.8-10.8)
[2018-10-18 06:13] LABS: ANION GAP 7 (5-13); BLOOD UREA NITROGEN 15 mg/dl (7-20); CALCIUM 8.4 mg/dl (8.4-10.2); CARBON DIOXIDE 23 mmol/L (21-31); CHLORIDE 104 mmol/L (97-110); CREATININE 1.87 mg/dl (0.61-1.24); GLUCOSE 87 mg/dl (70-220); POTASSIUM 3.9 mmol/L (3.5-5.1); SODIUM 134 mmol/L (135-144)
[2018-10-18] MEDS: TAMSULOSIN (SR) 0.4 MG CAP PO ×2 (09:00→13:31)
[2018-10-18] MEDS: FUROSEMIDE 20 MG TAB PO (09:05)
[2018-10-18] MEDS: PE/SHARK OIL/MO/PETROL 30 GM OINT PR (09:06)
[2018-10-18] MEDS: SOD CHLORIDE 0.9% 1,000 ML IV (13:31)
[2018-10-18] MEDS: ATORVASTATIN 80 MG TAB PO (21:37)
[2018-10-19 05:11] LABS: ADD MAN DIFF? NO
[2018-10-19 05:18] LABS: WHITE BLOOD COUNT 2.4 10^3/ul (4.8-10.8)
[2018-10-19 05:18] LABS: ABNORMAL IP MESSAGE 1; BASOPHILS % 0.8 % (0.0-2.0); EOSINOPHILS # 0.1 10^3/ul (0.0-0.5); EOSINOPHILS % 3.4 % (0.0-7.0); HEMATOCRIT 27.2 % (42.0-52.0); HEMOGLOBIN 8.6 g/dl (14.0-18.0); LYMPHOCYTES # 0.9 10^3/ul (0.8-2.9); LYMPHOCYTES % 39.7 % (15.0-51.0); MEAN CORPUSCULAR HGB CONC 31.6 g/dl (32.0-37.0); MEAN CORPUSCULAR VOLUME 94.8 fl (82.0-101.0); MONOCYTE # 0.4 10^3/ul (0.3-0.9); MONOCYTES % 14.8 % (0.0-11.0); PLATELET COUNT 283 10^3/UL (140-415); POSITIVE DIFF @See below; RED BLOOD COUNT 2.87 10^6/ul (4.70-6.10); RED CELL DISTRIBUTION WIDTH 14.1 % (11.5-14.5)
[2018-10-19 05:37] LABS: ANION GAP 5 (5-13); BLOOD UREA NITROGEN 15 mg/dl (7-20); CALCIUM 8.6 mg/dl (8.4-10.2); CARBON DIOXIDE 26 mmol/L (21-31); CHLORIDE 105 mmol/L (97-110); CREATININE 1.37 mg/dl (0.61-1.24); GLUCOSE 92 mg/dl (70-220); POTASSIUM 3.7 mmol/L (3.5-5.1); SODIUM 136 mmol/L (135-144)
[2018-10-19 05:40] LABS: MAGNESIUM 1.7 mg/dl (1.7-2.5)
[2018-10-19 05:40] LABS: PHOSPHORUS 3.3 mg/dl (2.5-4.9)
[2018-10-19] MEDS: TAMSULOSIN (SR) 0.4 MG CAP PO (08:36)
[2018-10-19] MEDS: FUROSEMIDE 20 MG TAB PO (08:36)
[2018-10-19] MEDS: SOD CHLORIDE 0.9% 1,000 ML IV (14:48)
[2018-10-19] MEDS ORDERED: SEVOFLURANE 15 MIN (18:00)
[2018-10-19] MEDS ORDERED: MIDAZOLAM 1 MG/ML 2 ML INJ (18:01)
[2018-10-19] MEDS ORDERED: ETOMIDATE 20 MG INJ (18:45)
[2018-10-19] MEDS ORDERED: ONDANSETRON 4 MG INJ (18:45)
[2018-10-19] MEDS ORDERED: CEFAZOLIN 1 GM INJ (18:45)
[2018-10-19] MEDS ORDERED: LIDOCAINE 2% (SDV) 5 ML INJ (18:45)
[2018-10-19] MEDS ORDERED: FENTAnyl 50 MCG/ML VIAL IV (19:30)
[2018-10-19] MEDS ORDERED: MEPERIDINE 25 MG INJ IV (19:30)
[2018-10-19] MEDS ORDERED: ONDANSETRON 4 MG INJ IV (19:30)
[2018-10-19] MEDS ORDERED: DIPHENHYDRAMINE 50 MG INJ IV (19:30)
[2018-10-19] MEDS ORDERED: hydrALAzine 20 MG INJ IV (19:30)
[2018-10-19] MEDS ORDERED: METOCLOPRAMIDE 10 MG INJ IV (19:30)
[2018-10-19] MEDS ORDERED: LABETALOL HCL 20MG INJ IV (19:30)
[2018-10-19] MEDS: ATORVASTATIN 80 MG TAB PO (20:33)
[2018-10-20 05:17] LABS: ADD MAN DIFF? NO
[2018-10-20 05:21] LABS: EOSINOPHILS # 0.1 10^3/ul (0.0-0.5); EOSINOPHILS % 3.4 % (0.0-7.0); HEMATOCRIT 26.6 % (42.0-52.0); HEMOGLOBIN 8.4 g/dl (14.0-18.0); LYMPHOCYTES # 1.2 10^3/ul (0.8-2.9); LYMPHOCYTES % 41.5 % (15.0-51.0); MEAN CORPUSCULAR HEMOGLOBIN 30.4 pg (29.0-33.0); MEAN CORPUSCULAR HGB CONC 31.6 g/dl (32.0-37.0); MEAN CORPUSCULAR VOLUME 96.4 fl (82.0-101.0); MEAN PLATELET VOLUME 9.2 fl (7.4-10.4); MONOCYTE # 0.4 10^3/ul (0.3-0.9); MONOCYTES % 13.9 % (0.0-11.0); NEUTROPHIL # 1.2 10^3/ul (1.6-7.5); NEUTROPHILS % 39.5 % (39.0-77.0); PLATELET COUNT 268 10^3/UL (140-415); RED BLOOD COUNT 2.76 10^6/ul (4.70-6.10)
[2018-10-20 05:21] LABS: WHITE BLOOD COUNT 2.9 10^3/ul (4.8-10.8)
[2018-10-20 05:54] LABS: ANION GAP 4 (5-13); BLOOD UREA NITROGEN 13 mg/dl (7-20); CALCIUM 8.5 mg/dl (8.4-10.2); CARBON DIOXIDE 27 mmol/L (21-31); CHLORIDE 107 mmol/L (97-110); CREATININE 1.17 mg/dl (0.61-1.24); GLUCOSE 131 mg/dl (70-220); POTASSIUM 3.6 mmol/L (3.5-5.1); SODIUM 138 mmol/L (135-144)
[2018-10-20] MEDS: FUROSEMIDE 20 MG TAB PO (09:56)
[2018-10-20] MEDS: TAMSULOSIN (SR) 0.4 MG CAP PO (09:57)
[2018-10-20] MEDS: ATORVASTATIN 80 MG TAB PO (20:32)
[2018-10-21 05:14] LABS: ADD MAN DIFF? NO
[2018-10-21 05:24] LABS: WHITE BLOOD COUNT 2.3 10^3/ul (4.8-10.8)
[2018-10-21 05:24] LABS: ABNORMAL IP MESSAGE 1; BASOPHILS % 0.9 % (0.0-2.0); EOSINOPHILS # 0.1 10^3/ul (0.0-0.5); EOSINOPHILS % 4.4 % (0.0-7.0); HEMOGLOBIN 8.3 g/dl (14.0-18.0); LYMPHOCYTES # 0.9 10^3/ul (0.8-2.9); MEAN CORPUSCULAR HGB CONC 31.9 g/dl (32.0-37.0); MEAN CORPUSCULAR VOLUME 93.9 fl (82.0-101.0); MEAN PLATELET VOLUME 8.8 fl (7.4-10.4); MONOCYTE # 0.3 10^3/ul (0.3-0.9); MONOCYTES % 12.7 % (0.0-11.0); NEUTROPHIL # 0.9 10^3/ul (1.6-7.5); NEUTROPHILS % 40.1 % (39.0-77.0); PLATELET COUNT 254 10^3/UL (140-415); POSITIVE DIFF @See below; RED BLOOD COUNT 2.77 10^6/ul (4.70-6.10); RED CELL DISTRIBUTION WIDTH 13.9 % (11.5-14.5)
[2018-10-21 05:44] LABS: ANION GAP 3 (5-13); BLOOD UREA NITROGEN 10 mg/dl (7-20); CALCIUM 8.6 mg/dl (8.4-10.2); CARBON DIOXIDE 25 mmol/L (21-31); CHLORIDE 109 mmol/L (97-110); CREATININE 1.06 mg/dl (0.61-1.24); GLUCOSE 87 mg/dl (70-220); POTASSIUM 3.5 mmol/L (3.5-5.1); SODIUM 137 mmol/L (135-144)
[2018-10-21 05:53] LABS: PHOSPHORUS 3.7 mg/dl (2.5-4.9)
[2018-10-21 05:53] LABS: MAGNESIUM 1.3 mg/dl (1.7-2.5)
[2018-10-21] MEDS: TAMSULOSIN (SR) 0.4 MG CAP PO (08:54)
[2018-10-21] MEDS: FUROSEMIDE 20 MG TAB PO (08:54)
[2018-10-21] MEDS: MAGNESIUM SULFATE 3 GM in DEXTROSE 5% 100 ML IVPB (15:01)
[2018-10-21] MEDS: ATORVASTATIN 80 MG TAB PO (21:07)
== END 2018-10-21 22:15 | disposition home or self-care (01) | DRG 694 ==
LOC: E/R 23:10 → MS1 10-20 20:41
PROC: 0TJ98ZZ Inspection of Ureter, Via Natural or Artificial Opening Endoscopic (ICD-10-PCS; principal; 2018-10-19 17:30)
DX: N13.2 Hydronephrosis with renal and ureteral calculous obstruction (principal); I13.0 Hypertensive heart and chronic kidney disease with heart failure and stage 1 through stage 4 chronic kidney disease, or unspecified chronic kidney disease; E87.1 Hypo-osmolality and hyponatremia; R31.0 Gross hematuria; N17.9 Acute kidney failure, unspecified; N18.9 Chronic kidney disease, unspecified; I50.9 Heart failure, unspecified; N20.0 Calculus of kidney; K40.90 Unilateral inguinal hernia, without obstruction or gangrene, not specified as recurrent; K43.9 Ventral hernia without obstruction or gangrene
CPT/HCPCS: 36415; 71045; 74018; 74176; 74430; 76775; 80048; 80053; 81001; 83690; 83735; 84100; 85025; 85610; 85730; 86850; 86900; 86901; 93005; 96374; 96375; 99285-25